=== PATIENT | male | born 1955 | race Caucasian/White ===

== ENCOUNTER 2019-03-02 13:56 | Emergency (ER) | payer MEDICARE, OTHER ==
[~2019-03-02] VITALS: Ht 165.1 cm; Wt 93.0 kg
[2019-03-02] MEDS ORDERED: CLOP75TA15 PO (14:12)
[2019-03-02] MEDS ORDERED: ASPI81TA31 PO (14:12)
[2019-03-02] MEDS ORDERED: OLME1TAB34 PO (14:12)
[2019-03-02] MEDS ORDERED: CLON0.1T PO (14:12)
[2019-03-02] MEDS ORDERED: SPIR25TA6 PO (14:12)
[2019-03-02] MEDS ORDERED: BENA40TA8 PO (14:12)
[2019-03-02] MEDS ORDERED: METO-358 PO (14:12)
[2019-03-02] MEDS ORDERED: ROSU10TA2 PO (14:12)
--- NOTE | 2019-03-02 14:19 | NUR ---
PT A/OX4, BIB SON IN PRIVATE VEHICLE, C/O C/P X 15 DAYS. PER PT'S REPORT (SON TRANSLATING), PT WAS REFERRED TO THE ER BY DR. DYE. C/P IS NON-PROVOKED, PRESSURE-LIKE IN QUALITY, RADIATES TO THE BACK, 6/10, CONSTANT. NO RESPIRATORY DISTRESS NOTED. PT'S SKIN IS WARM AND DRY TO TOUCH. VSS. PT DENIES SOB, N/V/D, DIZZINESS, HEADACHE.
[2019-03-02 14:20] LABS: BASOPHILS # (AUTO) 0.1 K/uL (0.0-8.0); BASOPHILS % (AUTO) 1.2 % (0.0-2.0); EOSINOPHILS # (AUTO) 0.2 K/uL (0.0-0.7); EOSINOPHILS % (AUTO) 2.8 % (0.0-7.0); HEMOGLOBIN 14.1 g/dL (12.5-16.3); LYMPHOCYTES # (AUTO) 2.1 K/uL (20.0-40.0); LYMPHOCYTES % (AUTO) 30.6 % (20.5-51.5); MEAN CORPUSCULAR HEMOGLOBIN 28.3 uug (23.8-33.4); MEAN CORPUSCULAR HGB CONC 34 g/dL (32.5-36.3); MEAN CORPUSCULAR VOLUME 84.5 fL (73.0-96.2); MONOCYTES # (AUTO) 0.6 K/uL (2.0-10.0); MONOCYTES % (AUTO) 9.4 % (0.0-11.0); NEUTROPHILS # (AUTO) 3.8 K/uL (1.8-8.9); PLATELET COUNT (AUTO) 168 K/uL (152-348); RED BLOOD CELL COUNT(AUTO) 4.97 MIL/uL (4.06-5.63); WHITE BLOOD COUNT (AUTO) 6.7 K/uL (3.6-10.2)
--- NOTE | 2019-03-02 14:21 | NUR ---
GRADE TAMPER AT BEDSIDE.
[2019-03-02 14:27] LABS: POTASSIUM 4.1 mmol/L (3.5-5.1)
--- NOTE | 2019-03-02 14:50 | NUR ---
PAGED VIP NEPHROLOGY FOR DR TO DR FIORE. AWAITING CALLBACK. ATTEMPT 1.
--- NOTE | 2019-03-02 15:11 | NUR ---
GENOVEVA MATAMOROS SPEAKING W/ DR. DYE ON THE PHONE RE PT'S CARE.
--- NOTE | 2019-03-02 15:27 | NUR ---
GENOVEVA MATAMOROS AT BEDSIDE FOR PT UPDATE.
[2019-03-02] MEDS ORDERED: ACETAMINOPHEN 325 MG TABLET PO ONE (15:30)
[2019-03-02] MEDS ORDERED: ACETAMINOPHEN 325 MG TABLET ONE (15:33)
--- NOTE | 2019-03-02 16:19 | NUR ---
Patient discharged to home in stable conditon. Written and verbal after care instructions given. Patient verbalizes understanding of instructions. ALL BELONGINGS W/ PT. PT SELF-AMBULATED W/O DIFFICULTY. 18G IV ACCESS IN R HAND REMOVED PRIOR TO D/C - INNER CANNULA INTACT. PT WILL BE DRIVEN HOME BY SON IN PRIVATE VEHICLE.
[2019-03-02 16:20] VITALS: BP 122/81
== END 2019-03-02 16:20 | disposition home or self-care (01) ==
LOC: ER 13:56
DX: R07.89 Other chest pain (principal); F17.290 Nicotine dependence, other tobacco product, uncomplicated; Z79.82 Long term (current) use of aspirin; Z79.899 Other long term (current) drug therapy
CPT/HCPCS: 36415; 70030-TC; 71045; 85025; 93005; A4663